=== PATIENT | female | born 1990 | race Caucasian/White ===

== ENCOUNTER → 2016-11-15 | Outpatient (CLI) | payer OTHER ==
--- NOTE | 2016-11-20 17:06 | MRI ---
STUDY: MRI OF THE BRAIN WITHOUT AND WITH GADOLINIUM History: Seizures. Headaches. Blurred vision. Comparison: None. Technique: Multiplanar multi-sequence MRI of the brain was obtained utilizing standard departmental p rotocol. Sagittal and axial T1, axial T2, FLAIR, diffusion (DWI/ADC) images through the brain were pe rformed. Coronal T2 FLAIR and T2 FSE images through the temporal lobes were also performed. 14 cc of Omniscan was administered without reported complication following acquisition of informed wr itten consent. Post gadolinium axial and coronal whole brain images were performed. Findings: Pre gadolinium brain: The sulci, cisterns, and ventricles are age appropriate. There is no evidence o f acute territorial infarction, hemorrhage, mass, mass effect or midline shift. There are no abnormal intra-axial or extra-axial fluid collections. The major intracranial vascular flow voids are intact. The hippocampal heads are normal in size, morphology, and signal intensity. There is no evidence of ortiz matter heterotopia or cortical dysplasia. Note is made of fluid in the maxillary sinuses bilater ally. Post gadolinium brain: Following the uneventful administration of intravenous gadolinium, there is no evidence of abnormal brain parenchymal or leptomeningeal enhancement. IMPRESSION: 1. No evidence of acute intracranial abnormality. No structural abnormalities are identified which m ight explain the patient's seizures. 2. Fluid within the maxillary sinuses. Clinical correlation for acute sinusitis is recommended. Reported By:
== END ==
LOC: RAD 11:42
PROVIDERS: ATTEND Psychiatry & Neurology Neurology
DX: G40.909 Epilepsy, unspecified, not intractable, without status epilepticus (principal)
CPT/HCPCS: 70553

== ENCOUNTER → 2017-01-18 | Outpatient (CLI) | payer OTHER | LOC: RAD 13:42 | PROVIDERS: ATTEND Psychiatry & Neurology Neurology | DX: G40.909 Epilepsy, unspecified, not intractable, without status epilepticus (principal) | CPT/HCPCS: 93306 ==